=== PATIENT | male | born 1965 | race Caucasian/White ===

== ENCOUNTER 2025-06-01 15:45 | Observation (INO) | payer OTHER ==
[~2025-06-01] VITALS: Ht 180.3 cm; Wt 107.3 kg
[2025-06-01] MEDS ORDERED: NS 1,000 ML IV SCH ×3 (16:00→18:00)
[2025-06-01 16:18] LABS: BASOPHILS ABSOLUTE AUTO 0.06 K/mm3 (0.00-0.23); BASOPHILS PERCENT AUTO 1 % (0-2); EOSINOPHILS ABSOLUTE AUTO 0.06 K/mm3 (0.00-0.68); EOSINOPHILS PERCENT AUTO 1 % (0-6); Hematocrit 48.2 % (37.0-53.0); Hemoglobin 15.8 g/dL (13.5-17.5); IMMATURE GRAN ABSOLUTE AUTO 0.02 K/mm3 (0.00-0.10); IMMATURE GRAN PERCENT AUTO 0 % (0-1); LYMPHOCYTES ABSOLUTE AUTO 1.71 K/mm3 (0.84-5.20); LYMPHOCYTES PERCENT AUTO 21 % (21-46); MONOCYTES ABSOLUTE AUTO 0.75 K/mm3 (0.16-1.47); MONOCYTES PERCENT AUTO 9 % (4-13); Mean Corpuscular HGB Conc 32.8 g/dL (31.5-36.5); Mean Corpuscular Volume 99 fL (80-100); NEUTROPHILS ABSOLUTE AUTO 5.68 K/mm3 (1.96-9.15); NEUTROPHILS PERCENT AUTO 69 % (41-73); NRBC ABSOLUTE 0.00 K/mm3 (0.00-0.02); NRBC Auto 0.0 /100 WBC (0.0-0.2); Platelet Count 168 K/mm3 (150-400); RDW Coefficient Variation 13.2 % (11.7-14.2); RDW Standard Deviation 48.9 fL (35.1-46.3)
[2025-06-01 16:42] LABS: Alanine Aminotransfer (ALT/SGP 39.0 U/L (12-78); Albumin, Blood 3.7 g/dL (3.4-5.0); Albumin/Globulin Ratio 1.1 (0.8-1.8); Anion Gap 18.0 mmol/L (3-11); Aspartate Aminotrans (AST/SGOT 28.0 U/L (12-37); Bilirubin, Total 0.6 mg/dL (0.1-1.0); Blood Urea Nitrogen 26.0 mg/dL (8-24); CO2, Blood 16.0 mmol/L (21-32); Calcium, Blood 9.2 mg/dL (8.5-10.1); Chloride, Blood 105.0 mmol/L (98-108); Creatinine, Blood 1.78 mg/dL (0.60-1.20); Globulin, Blood 3.4 g/dL (2.2-4.0); Glucose, Blood 121.0 mg/dL (70-99); Potassium, Blood 4.2 mmol/L (3.5-5.5); Sodium, Blood 135.0 mmol/L (136-145); Total Protein, Blood 7.1 g/dL (6.4-8.2)
[2025-06-01 16:44] LABS: CORONAVIRUS COVID-19 AG Negative (NEGATIVE)
[2025-06-01] MEDS ORDERED: Prochlorperazine Edisylate 10 mg Vial IV ONE (18:05)
[2025-06-01 20:47] LABS: Thyroid Stimulating Hormone 3.52 uIU/mL (0.360-4.800)
[2025-06-01 20:59] LABS: pH Blood Venous 7.39 (7.34-7.37)
[2025-06-01] MEDS ORDERED: Ondansetron HCl 2 MG / ML 2ML Vial IV PRN (21:10)
[2025-06-01] MEDS ORDERED: FLU VACC TS2025-26(6MOS UP)/PF 45 MCG/0.5 ML SYRINGE IM SCH (21:10)
[2025-06-01] MEDS ORDERED: Albuterol 2.5 MG/3 ML VIAL INH PRN (21:15)
[2025-06-01 21:23] LABS: Magnesium, Blood 1.9 mg/dL (1.6-2.4)
[2025-06-01 22:25] LABS: Source, Urine Clean Catch
[2025-06-01 22:30] LABS: Bilirubin, Urine Neg (Neg); Glucose Qualitative, Urine 1+ (Neg); Ketones, Urine 1+ (Neg); Leukocyte Esterase, Urine Neg (Neg); Protein, Urine 1+ (Neg); Specific Gravity, Urine 1.010 (1.003-1.022); Urobilinogen, Urine NORM (Normal)
[2025-06-01 22:35] LABS: Color, Urine Yellow (P-Yellow)
[2025-06-01 22:37] LABS: Red Blood Cells, Urine 0-2 /hpf (0-2); White Blood Cells, Urine 0-2 /hpf (0-5)
[2025-06-01 22:48] LABS: U Amphetamine Screen Not Detected; U Barbiturate Screen DETECTED; U Benzodiazapine Screen Not Detected; U Buprenorphine Screen Not Detected; U Cannabinoids Screen Not Detected; U Cocaine Screen Not Detected; U Methadone Screen Not Detected; U Methamphetamine Screen Not Detected; U Opiates Screen Not Detected; U Oxycodone Screen Not Detected; U Phencyclidine Screen Not Detected
[2025-06-01 22:53] VITALS: BP 128/79
[2025-06-01] MEDS ORDERED: Primidone50 MG PO (23:09)
[2025-06-01] MEDS ORDERED: ALBU90OI61 INH (23:10)
[2025-06-01] MEDS ORDERED: TAMS.4ER PO (23:11)
[2025-06-01] MEDS ORDERED: LOSA50 PO (23:11)
[2025-06-01] MEDS ORDERED: MULVITA PO (23:12)
[2025-06-01] MEDS ORDERED: Acerola C500 MG PO (23:12)
[2025-06-01] MEDS ORDERED: Flonase 0.05% N16 GM (23:13)
[2025-06-02 00:16] VITALS: BP 114/64
[2025-06-02 00:23] LABS: Hematocrit 36.5 % (37.0-53.0); Hemoglobin 12.2 g/dL (13.5-17.5); Mean Corpuscular HGB Conc 33.4 g/dL (31.5-36.5); Mean Corpuscular Volume 99 fL (80-100); NRBC ABSOLUTE 0.00 K/mm3 (0.00-0.02); NRBC Auto 0.0 /100 WBC (0.0-0.2); Platelet Count 118 K/mm3 (150-400); RDW Coefficient Variation 13.2 % (11.7-14.2); RDW Standard Deviation 48.7 fL (35.1-46.3)
[2025-06-02 00:36] LABS: Anion Gap 14.0 mmol/L (3-11); Blood Urea Nitrogen 28.0 mg/dL (8-24); CO2, Blood 20.0 mmol/L (21-32); Calcium, Blood 8.0 mg/dL (8.5-10.1); Chloride, Blood 109.0 mmol/L (98-108); Creatinine, Blood 1.15 mg/dL (0.60-1.20); Glucose, Blood 159.0 mg/dL (70-99); Potassium, Blood 3.8 mmol/L (3.5-5.5); Sodium, Blood 139.0 mmol/L (136-145)
[2025-06-02 03:16] VITALS: BP 136/87
--- NOTE | 2025-06-02 03:41 | NUR ---
Patient admit to room 301 from ER via atretcher, alert and oriented, denies dizziness or pain, walked form stretcher to bed with stand by assist, lungs clear, telemetry placed on patient, rhythm showing bradycardia at time of place, showing sinus rhythm after a short time, denies head ache and nausea, IV LR AT 100, admission assessment completed, states he does not want a flu vaccine during this hospital stay, Will continue to monitor call light in reach bed in low and locked position educated on fall precautions since he did have syncopal episode at him and fell.
[2025-06-02 07:40] VITALS: BP 151/106
[2025-06-02] MEDS ORDERED: Enoxaparin 40 MG/0.4 ML SYR SC SCH (09:00)
[2025-06-02 11:32] VITALS: BP 163/114
--- NOTE | 2025-06-02 15:05 | NUR ---
DISCHARGE PT DISCHARGED HOME WITH FRIEND. PT WISHED TO WALK OUT. ALL BELONGINGS WITH PT, EDUCATION PROVIDED, ALL QUESTIONS ANSWERED.
[2025-06-04 06:38] LABS: ADRENOCORTICOTROPIC HORMONE 2.0 pg/mL (7.2-63.3)
== END 2025-06-02 14:40 | disposition home or self-care (01) ==
LOC: ER 15:45 → MEDS 15:46
PROVIDERS: Nurse Practitioner Acute Care; Student in an Organized Health Care Education/Training Program; ADMIT Internal Medicine
DX: I95.9 Hypotension, unspecified (principal); E86.1 Hypovolemia; E87.1 Hypo-osmolality and hyponatremia; E87.21 Acute metabolic acidosis; E86.0 Dehydration; R42 Dizziness and giddiness; I10 Essential (primary) hypertension; N40.0 Benign prostatic hyperplasia without lower urinary tract symptoms; N17.9 Acute kidney failure, unspecified; J45.20 Mild intermittent asthma, uncomplicated; F17.220 Nicotine dependence, chewing tobacco, uncomplicated; Z88.0 Allergy status to penicillin; Z88.2 Allergy status to sulfonamides; Z79.899 Other long term (current) drug therapy
CPT/HCPCS: 36415; 70450; 71045; 80048; 80053; 80320; 81001; 82024; 82533; 82550; 82803; 83605; 83735; 84443; 84484; 85025; 85027; 87428-QW; 93005; 93010; 96374; 99285-25; A9270; G0378; J0780; J7030; J7120

== ENCOUNTER → 2025-08-05 | Outpatient (CLI) | payer OTHER ==
[~2025-08-05] MED LIST: ALBU90OI61 INH; Acerola C500 MG PO; Flonase 0.05% N16 GM; LOSA50 PO; MULVITA PO; Primidone50 MG PO; TAMS.4ER PO
[2025-08-05 15:13] LABS: BASOPHILS ABSOLUTE AUTO 0.07 K/mm3 (0.00-0.23); BASOPHILS PERCENT AUTO 2 % (0-2); EOSINOPHILS ABSOLUTE AUTO 0.06 K/mm3 (0.00-0.68); EOSINOPHILS PERCENT AUTO 1 % (0-6); Hematocrit 44.4 % (37.0-53.0); Hemoglobin 15.1 g/dL (13.5-17.5); IMMATURE GRAN ABSOLUTE AUTO 0.02 K/mm3 (0.00-0.10); IMMATURE GRAN PERCENT AUTO 0 % (0-1); LYMPHOCYTES ABSOLUTE AUTO 0.80 K/mm3 (0.84-5.20); LYMPHOCYTES PERCENT AUTO 17 % (21-46); MONOCYTES ABSOLUTE AUTO 0.82 K/mm3 (0.16-1.47); MONOCYTES PERCENT AUTO 17 % (4-13); Mean Corpuscular HGB Conc 34.0 g/dL (31.5-36.5); Mean Corpuscular Volume 98 fL (80-100); NEUTROPHILS ABSOLUTE AUTO 2.96 K/mm3 (1.96-9.15); NEUTROPHILS PERCENT AUTO 63 % (41-73); NRBC ABSOLUTE 0.00 K/mm3 (0.00-0.02); NRBC Auto 0.0 /100 WBC (0.0-0.2); Platelet Count 160 K/mm3 (150-400); RDW Coefficient Variation 14.3 % (11.7-14.2); RDW Standard Deviation 51.7 fL (35.1-46.3)
[2025-08-05 15:37] LABS: Alanine Aminotransfer (ALT/SGP 55.0 U/L (12-78); Albumin, Blood 3.3 g/dL (3.4-5.0); Albumin/Globulin Ratio 0.9 (0.8-1.8); Anion Gap 15.0 mmol/L (3-11); Aspartate Aminotrans (AST/SGOT 43.0 U/L (12-37); Bilirubin, Total 0.7 mg/dL (0.1-1.0); Blood Urea Nitrogen 19.0 mg/dL (8-24); CO2, Blood 25.0 mmol/L (21-32); Calcium, Blood 8.4 mg/dL (8.5-10.1); Chloride, Blood 107.0 mmol/L (98-108); Creatinine, Blood 1.3 mg/dL (0.60-1.20); Globulin, Blood 3.6 g/dL (2.2-4.0); Glucose, Blood 100.0 mg/dL (70-99); Potassium, Blood 3.9 mmol/L (3.5-5.5); Sodium, Blood 143.0 mmol/L (136-145); Thyroid Stimulating Hormone 1.551 uIU/mL (0.360-4.800); Total Protein, Blood 6.9 g/dL (6.4-8.2)
== END ==
LOC: LAB 15:08 → LAB SHORT 15:08
PROVIDERS: Family Medicine
DX: R53.83 Other fatigue (principal)
CPT/HCPCS: 80053; 84443; 85025